=== PATIENT | female | born 1995 ===

== ENCOUNTER 2020-02-24 09:41 | Inpatient (IN) | payer MEDICAID ==
[~2020-02-24 09:41] MED LIST: Dexamethasone 20 MG/5 ML VIAL ONE; EPHEDRINE 25 MG/5 ML SYRINGE ONE; Ketorolac Tromethamine 30 MG/ML VIAL ONE; Metoclopramide HCl 10 MG/2 ML VIAL ONE; PHENYLEPHRINE-NS 100 MCG/ML 10 ML SYRINGE ONE
[2020-02-24 10:20] VITALS: BMI 44.8
[2020-02-24] MEDS ORDERED: hydrALAZINE 20 MG/ML VIAL SLOW IVP PRN ×2 (10:35→15:28)
[2020-02-24] MEDS ORDERED: Promethazine HCl 25 MG/ML VIAL IM PRN ×3 (10:35→15:28)
[2020-02-24] MEDS ORDERED: Ondansetron PF 4 MG/2 ML Vial IVP PRN ×3 (10:35→15:28)
--- NOTE | 2020-02-24 10:40 | PDOC.LDHP ---
Labor and Delivery H&P Chief complaint: scheduled section HPI: 25 y/o at 39 and 0/7 weeks for repeat scheduled 2nd . Current gestational age (weeks): 39 Due date: 03/02/20 Grav: 2 Para: 1 Current complications: other (Morbid Obesity (BMI 45)) Abnormal US findings: No Current medications: pre- vitamins Previous surgical history: low tranverse CS Allergies/Adverse Reactions: Allergies Allergy/AdvReac Type Severity Reaction Status Date / Time No Known Allergies Allergy Verified 02/24/20 10:11 Social history: none - Physical Exam Vital signs reviewed and normal: yes General: NAD, resting Heart: RRR Lungs: CTAB Abdomen: gravid Extremeties: no edema FHT: category 1 - Assessment L&D Assessment: scheduled repeat section - Plan Plan: admit to L&D, to OR for section
[2020-02-24] MEDS ORDERED: CEFAZOLIN 2 GM in Premix Bag 1 BAG IVPB SCH (10:45)
[2020-02-24] MEDS ORDERED: Bicitra 30 ML UDCUP PO SCH (10:45)
[2020-02-24 10:50] LABS: Hemoglobin 13.1 g/dL (12.0-16.0); Mean Corpuscular HGB CONC 32.4 g/dL (32.0-36.0); Mean Corpuscular Hemoglobin 29.8 pg (27.0-31.0); Mean Platelet Volume 10.3 fL (7.4-10.4); Platelet Count 168 thou/uL (130-400); RBC Distribution Width 11.6 % (11.5-14.5); White Blood Cell (WBC) Count 10.8 thou/uL (4.8-10.8)
[2020-02-24] MEDS: Lactated Ringer's 1,000 ML IV SCH (11:06)
[2020-02-24 11:31] LABS: HBSAg Index 0.17 S/CO (0-0.99); Hep B Surf Ag Non-Reactive S/CO (NonReactive)
[2020-02-24 11:32] LABS: Syphilis Antibody Nonreactive (Nonreactive); Syphilis Antibody Index 0.05 S/CO (<1.00 Non-Reactive)
[2020-02-24] MEDS ORDERED: Oxytocin 10 UNITS/ML VIAL ONE (11:32)
[2020-02-24] MEDS ORDERED: MORPHINE 5 MG/10 ML PF VIAL ONE (11:32)
[2020-02-24] MEDS ORDERED: Famotidine/PF 20 mg/2ml Vial ONE (11:32)
[2020-02-24] MEDS ORDERED: Promethazine HCl 25 MG SUPP PR PRN (13:28)
[2020-02-24] MEDS ORDERED: Ondansetron HCl/PF 4 MG/2 ML Vial IVP PRN (13:28)
[2020-02-24] MEDS ORDERED: Meperidine HCl/PF 25 MG/ML VIAL SLOW IVP PRN (13:28)
[2020-02-24] MEDS ORDERED: Naloxone HCl 0.4 mg/ml Vial IV PRN (13:28)
[2020-02-24] MEDS ORDERED: diphenhydrAMINE 50 MG/ML VIAL IVP PRN (13:28)
[2020-02-24] MEDS ORDERED: L&D-Morphine 4 MG/ML VIAL SLOW IVP PRN (13:28)
[2020-02-24] MEDS ORDERED: HYDROmorphone 2 MG/ML VIAL SLOW IVP PRN (13:28)
[2020-02-24] MEDS ORDERED: Naloxone HCl 0.4 mg/ml Vial IVP PRN ×2 (13:28)
[2020-02-24] MEDS ORDERED: Communication Order-Pharmacy FS SCH (13:30)
[2020-02-24] MEDS ORDERED: NS / Oxytocin 40 units/1000ml 1,000 ML ONE (13:55)
[2020-02-24] MEDS ORDERED: diphenhydrAMINE 50 MG/ML VIAL ONE (14:41)
[2020-02-24] MEDS ORDERED: NS / Oxytocin 40 units/1000ml 1,000 ML IV SCH (15:28)
[2020-02-24] MEDS ORDERED: diphenhydrAMINE 25 MG CAP PO PRN (15:28)
[2020-02-24] MEDS ORDERED: Acetaminophen 325 MG TAB PO PRN (15:28)
[2020-02-24] MEDS ORDERED: Bisacodyl 10 MG SUPP PR PRN (15:28)
[2020-02-24] MEDS ORDERED: Methylergonovine 0.2 MG/ML VIAL IM PRN (15:28)
[2020-02-24] MEDS ORDERED: Zolpidem Tartrate 5 MG TAB PO PRN (15:28)
[2020-02-24] MEDS ORDERED: Misoprostol 200 MCG TAB PR PRN (15:28)
[2020-02-24] MEDS: Docusate Calcium (SURFAK) 240 MG CAP PO SCH (22:35)
[2020-02-24] MEDS: Enoxaparin Sodium 40 MG/0.4 ML SYRINGE SC SCH (22:35)
[2020-02-25] MEDS ORDERED: HYDROcodone/Acetaminophen 5/325 mg Tablet PO PRN (01:30)
--- NOTE | 2020-02-25 02:52 | OP ---
DATE OF PROCEDURE: 02/24/2020 TIME: At 1241 hours [employer] Savings time. PREOPERATIVE DIAGNOSIS: Intrauterine at 39 weeks and zero days with history of previous section and declined trial of labor after section. She presents for a 2nd repeat low-transverse section at 39 weeks. POSTOPERATIVE DIAGNOSIS: Intrauterine at 39 weeks and zero days with history of previous section and declined trial of labor after section. She presents for a 2nd repeat low-transverse section at 39 weeks. PROCEDURE PERFORMED: Repeat low-transverse section. FINDINGS: Viable male infant weighing 3347 g or 7 pounds 6 ounces, Apgars 8 and 9. QUANTITATIVE BLOOD LOSS: 580 mL. COMPLICATIONS: None. DETAILS OF THE PROCEDURE: The patient was consented and taken back to the operating room where spinal anesthesia was found to be adequate. She was then prepped and draped in the normal sterile fashion. A timeout was performed by the entire operative team. The incision was then marked with a marking pen tested using sharp pickups. An incision was then made with a scalpel. The incision was carried through the adipose tissue down to the underlying rectus fascia using both sharp dissection as well as cautery. Once the fascia was identified, it was incised in the midline and then the fascial incision was carried through in both lateral directions using sharp as well as cautery dissection techniques. Next, the superior aspect of the rectus fascia was grasped with 2 Raul clamps, which was tented up and the rectus muscles were dissected off using blunt dissection as well as cautery dissection. Similarly, the inferior aspect of the fascial incision was grasped with 2 Raul clamps, tented up and the rectus muscles were dissected off bluntly as well as sharply. Next, the rectus muscles were in the midline and the peritoneum identified. The peritoneum was then carefully grasped with 2 hemostats and entered sharply. The peritoneal incision was extended superiorly and inferiorly and bladder blade was placed in the lower abdomen. At this point, the uterus was identified and the bladder flap was then developed using pickups with teeth as well as Metzenbaum scissors in both lateral directions. The bladder flap was then dissected downwards using the system operator's finger as well as Metzenbaum scissors. The bladder blade was replaced. The lower uterine segment was then identified and entered sharply using a clean scalpel. The uterine incision was then dissected downwards until thin layer of muscle remained and this was entered bluntly using a hemostat to avoid any injury to the baby. The uterine incision was then stretched using two fingers in both lateral directions. An amniotomy was performed artificially using a hemostat and the baby was delivered using fundal pressure in a gentle fashion. Once out, the baby's mouth and nose were bulb suctioned, cord clamped and cut, and the baby was handed to waiting attendants. Next, the uterus was exteriorized, cleared of all clots and debris and the uterine incision was repaired with #1 Monocryl in a running locking fashion. A 2nd suture of the same type was used to obtain complete hemostasis at the uterine incision. The bladder flap was reapproximated using 3-0 Monocryl. Next, patient's left and right adnexa were inspected and appeared to be within normal limits. The posterior cul-de-sac was blotted dry and hemostasis assured. One more look at the uterine incision demonstrated hemostasis. Next, the uterus was replaced back within the abdomen. The peritoneum was reapproximated using 2-0 Monocryl without difficulty. The rectus muscles were then allowed to come back together and 0 chromic was used to aid in reapproximation of the muscle as necessary. The rectus fascia was then reapproximated in a running fashion using 0 Vicryl suture. The adipose tissue was then examined and appeared to be well approximated without any obvious separations. Finally, the skin was reapproximated with 3-0 Monocryl on a Bo needle without difficulty and Dermabond adhesive was applied to the skin. Once the glue was dry, the drapes were removed and the patient was transferred to an ambulatory bed where she was taken to recovery awake and in stable condition. Sponge, lap, and needle counts were correct x3. Job ID: [id number]
[2020-02-25] MEDS: Simethicone Chewable 80 MG TAB PO PRN ×2 (03:21→21:58)
[2020-02-25] MEDS ORDERED: Sodium Chloride 0.9% 10 ML ONE ×2 (05:42→23:13)
[2020-02-25] MEDS: Ketorolac Tromethamine 30 MG/ML VIAL IVP PRN ×2 (05:44→11:43)
[2020-02-25 06:54] LABS: Hemoglobin 11.7 g/dL (12.0-16.0); Mean Corpuscular HGB CONC 34.9 g/dL (32.0-36.0); Mean Corpuscular Hemoglobin 32.3 pg (27.0-31.0); Mean Corpuscular Volume 92.4 fL (78.0-98.0); Platelet Count 147 thou/uL (130-400); RBC Distribution Width 11.4 % (11.5-14.5); Red Blood Cell (RBC) Count 3.63 mill/uL (4.20-5.40); White Blood Cell (WBC) Count 14.2 thou/uL (4.8-10.8)
[2020-02-25] MEDS: Prenatal Vitamin 1 TAB PO SCH (08:28)
[2020-02-25] MEDS: Docusate Calcium (SURFAK) 240 MG CAP PO SCH ×2 (08:28→21:57)
[2020-02-25] MEDS ORDERED: Measles/Mumps/Rubella 10 MCG/0.5 ML VIAL SC ONE (09:00)
[2020-02-25] MEDS ORDERED: Varicella virus, LIVE 0.5 ML VIAL SC ONE (09:00)
[2020-02-25] MEDS ORDERED: Adacel (T-DAP) 0.5 ML SYRINGE IM ONE (09:00)
--- NOTE | 2020-02-25 11:34 | PDOC.PP ---
Post Progress Note Post Day #: 1 PO intake tolerated: yes Ambulation: yes Vital Signs (12 hours) Temp Pulse Resp BP Pulse Ox 02/25/20 07:53 98.1 F 90 20 94/55 L 97 02/25/20 06:03 98.5 F 93 12 115/67 97 02/25/20 00:56 98.4 F 102 H 14 103/54 L 95 Weight Weight 295 lb - Physical Examination General: NAD Cardiovascular: no m/r/g, RRR Respiratory: clear to auscultation bilaterally, non-labored breathing Abdominal: + bowel sounds, lochia, no distention, appropriately TTP Extremities: negative homans (B) Skin: CS incision dry & intact, no rash Neurological: no gross focal deficits Psychiatric: A&Ox3, normal affect Result Diagrams: 02/25/20 06:43 Additional Labs: Post Labs Blood Type AB POSITIVE 02/24/20 11:10 Hep Bs Antigen Non-Reactive S/CO (NonReactive) 02/24/20 10:40
[2020-02-25] MEDS: HYDROcodone/Acetaminophen 5/325 mg Tablet PO PRN ×2 (17:30→21:57)
[2020-02-25] MEDS: Ibuprofen 800 MG TAB PO SCH (21:57)
[2020-02-25] MEDS: Enoxaparin Sodium 40 MG/0.4 ML SYRINGE SC SCH (21:57)
[2020-02-26] MEDS: Ibuprofen 800 MG TAB PO SCH ×2 (05:22→14:06)
[2020-02-26] MEDS: Docusate Calcium (SURFAK) 240 MG CAP PO SCH (08:23)
[2020-02-26] MEDS: Prenatal Vitamin 1 TAB PO SCH (08:23)
[2020-02-26 13:37] VITALS: BP 145/67; TEMP 98.5
[2020-02-26] MEDS: HYDROcodone/Acetaminophen 5/325 mg Tablet PO PRN (15:20)
== END 2020-02-26 15:40 | disposition home or self-care (01) | DRG 788 ==
LOC: L&D 09:41 → 3SW 15:57
PROVIDERS: ADMIT Obstetrics & Gynecology; ATTEND Obstetrics & Gynecology
PROC: 10D00Z1 Extraction of Products of Conception, Low, Open Approach (ICD-10-PCS; principal; 2020-02-24)
DX: O34.211 Maternal care for low transverse scar from previous cesarean delivery (principal); Z3A.39 39 weeks gestation of pregnancy; Z37.0 Single live birth; O99.214 Obesity complicating childbirth; E66.01 Morbid (severe) obesity due to excess calories
CPT/HCPCS: 36415; 51702; 85027; 86780; 86850; 86900; 86901; 87340; 90707; 90715; J0690; J1100; J1200; J1650; J1885; J2274; J2405; J2590; J2765; Q0163; S0028